=== PATIENT | female | born 1970 | race Caucasian/White ===

== ENCOUNTER → 2023-02-02 | Outpatient (CLI) | payer OTHER ==
[2023-02-02 15:43] LABS: Basophils # (A) 0.05 X 10*3/uL (0.00-0.10); Basophils % (A) 0.7 %; Eosinophils # (A) 0.28 X 10*3/uL (0.04-0.35); HCT 43.5 % (37.2-46.3); HGB 14.1 g/dL (12.0-15.0); Immature Grans, Automated 0.3 %; Lymphocytes # (A) 2.71 X 10*3/uL (0.90-5.00); Lymphocytes % (A) 38.7 %; MCH 30.7 pg (27.0-32.0); MCHC 32.4 g/dL (32.0-37.0); MCV 94.8 fL (80.0-97.0); Monocytes # (A) 0.69 X 10*3/uL (0.20-1.00); Monocytes % (A) 9.8 %; NRBC Per 100 WBC 0 /100 WBCS (0.0-0.0); Neutrophils # (A) 3.26 X 10*3/uL (1.80-7.70); Neutrophils % (A) 46.5 %; Platelet Count 324 X 10*3/uL (140-440); RBC 4.59 X 10*6/uL (4.10-5.20); RDW 12.7 % (11.5-14.5); WBC 7.01 X 10*3/uL (4.50-10.00)
[2023-02-02 16:03] LABS: ALT 18 U/L (8-44); AST 11 U/L (13-35); African American GFR (CKD) 117.2 (60.0-200.0); Albumin 4.4 g/dL (3.8-4.9); Albumin/Globulin Ratio 1.81 (1.60-3.17); Alkaline Phosphatase 88 U/L (41-126); BUN/Creat Ratio 19.08 Ratio (12.00-20.00); Blood Urea Nitrogen 12.5 mg/dL (9.0-27.0); Calcium 9.2 mg/dL (8.7-10.3); Carbon Dioxide 24.9 mmol/L (20.0-27.5); Chloride 108 mmol/L (96-109); Chol/HDL Ratio 4.44 Ratio; Globulin 2.4 g/dL (1.6-3.3); Glucose 106 mg/dL (70-110); LDL Cholesterol,Calculated 123.1 mg/dL (0.0-131.0); Non-African American GFR(CKD) 101.1 (60.0-200.0); Potassium 4.2 mmol/L (3.5-5.5); Sodium 143 mmol/L (135-145); Total Protein 6.8 g/dL (6.2-8.2)
== END | disposition home or self-care (01) ==
LOC: LABWHC1 08:31
PROVIDERS: ATTEND Internal Medicine
DX: Z00.00 Encounter for general adult medical examination without abnormal findings (principal)
CPT/HCPCS: 36415; 80053; 80061; 84443; 85025

== ENCOUNTER 2023-04-24 06:30 | Emergency (ER) | payer OTHER ==
[2023-04-24 06:39] VITALS: RESP 18; TEMP 97.6
[2023-04-24] MEDS ORDERED: KETOROLAC 15 MG/ML 1 ML VIAL IM STA (06:47)
[2023-04-24] MEDS ORDERED: HYDROcodone/APAP 5-325MG 1 EACH TAB PO STA (06:47)
--- NOTE | 2023-04-24 06:51 | ED ---
Lower Extremity Injury HPI - General Chief Complaint: Extremity Injury, Lower Stated Complaint: Left Leg Injury Time Seen by Provider: 04/24/23 06:39 Source: patient, RN notes reviewed Mode of arrival: wheelchair Limitations: no limitations - History of Present Illness Initial Comments: This is a 52-year-old female who presents to the emergency department for left leg pain. Patient states yesterday, her leg got twisted in a tractor, and she's had pain ever since. The majority of the pain is on the left side of the knee, however she does have pain going both up and down the leg. She is having difficulty walking and fully straightening the leg due to pain. She has not yet taken anything to treat her symptoms. Denies sustaining any other injuries. Denies any fevers, chills, sore throat, cough, dyspnea, chest pain, palpitations, abdominal pain, nausea, vomiting, diarrhea, back pain, or headaches. MD Complaint: knee injury, leg injury Onset/Timin -: days(s) Injury: Leg: Left, Knee: Left - Related Data Home Medications Medication Instructions Recorded Confirmed No Known Home Medications 05/06/16 05/06/16 Allergies Allergy/AdvReac Type Severity Reaction Status Date / Time No Known Allergies Allergy Verified 05/06/16 19:49 Review of Systems ROS Statement: Those systems with pertinent positive or pertinent negative responses have been documented in the HPI. ROS Other: All systems not noted in ROS Statement are negative. Past Medical History Past Medical History: No Reported History History of Any Multi-Drug Resistant Organisms: None Reported Past Surgical History: No Surgical Hx Reported Past Psychological History: No Psychological Hx Reported Past Alcohol Use History: None Reported Past Drug Use History: Marijuana General Exam Limitations: no limitations General appearance: alert, in distress Head exam: Present: atraumatic, normocephalic, normal inspection Respiratory exam: Present: normal lung sounds bilaterally. Absent: respiratory distress, wheezes, rales, rhonchi, stridor Cardiovascular Exam: Present: regular rate, normal rhythm, normal heart sounds. Absent: systolic murmur, diastolic murmur, rubs, gallop, clicks Extremities exam: Present: other (Tenderness to palpation over the lateral aspect of the left patella with mild overlying swelling. Paula's and range of motion in general induces pain. 2+ DP and PT pulses. Capillary refill less than 1 second.) Neurological exam: Present: alert, oriented X3, CN II-XII intact Psychiatric exam: Present: normal affect, normal mood Skin exam: Present: warm, dry, intact, normal color. Absent: rash Course Vital Signs 04/24/23 04/24/23 06:36 07:38 Temperature 97.6 F Pulse Rate 56 L 86 Respiratory 18 18 Rate Blood Pressure 170/103 143/92 O2 Sat by Pulse 98 96 Oximetry Medical Decision Making - Medical Decision Making This is a 52-year-old female who presents to the emergency department for left leg pain. Was pt. sent in by a medical professional or institution? @ -No Did you speak to anyone other than the patient for history? @ -No Did you review nursing and triage notes? @ -Yes, and I agree, it is accurate with regards to the patient's symptoms. Were old charts reviewed? @ -No Differential Diagnosis? @ -Differential Leg Pain: Leg fracture, leg sprain, DVT, PVD, arterial insufficiency, iliac artery aneurysm, cellulitis, compartment syndrome, tendinopathy, nerve entrapment, piriformis syndrome, osteoarthritis, rhabdomyolysis, myositis, cramping from an electrolyte imbalance, this is not meant to be an all inclusive list. EKG interpreted by me (3pts min.)? @ -Not obtained X-rays interpreted by me (1pt min.)? @ -XR of the left hip, knee, and tib/fib obtained. My interpretation identifies no acute fractures or dislocations. CT interpreted by me (1pt min.)? @ -Not obtained U/S interpreted by me (1pt. min.)? @ -Not obtained What testing was considered but not performed? (CT, X-rays, U/S, labs)? Why? @ -None What meds were considered but not given? Why? @ -None Did you discuss the management of the patient with other professionals? @ -No Did you reconcile home meds? @ -No Was smoking cessation discussed for >3mins.? @ -No Was critical care preformed (if so, how long)? @ -No Were there social determinants of health that impacted care today? How? (Homelessness, low income, unemployed, alcoholism, drug addiction, transportation, low edu. Level, literacy, decrease access to med. care, nursing home, rehab)? @ -No Was there de-escalation of care discussed even if they declined? (Discuss DNR or withdrawal of care, Hospice)? @ -No What co-morbidities impacted this encounter? (DM, HTN, Smoking, COPD, CAD, Cancer, CVA, Hep., AIDS, mental health diagnosis, sleep apnea, morbid obesity)? @ -None Was patient admitted / discharged? @ -Discharged. Patient given IM toradol and Ralph for pain control, which was beneficial. XR of the left hip, knee, and tib/fib obtained revealing no acute process. Discussed with the patient that this does not rule out an injury to her meniscus or ligaments, which we cannot adequately identify on x-rays. Information for orthopedic follow-up provided, she is instructed to contact them for a follow-up appointment. Patient is also instructed to alternate with ibuprofen and tylenol for pain relief and to apply ice to the areas of pain for 15-20 minutes every 2-3 hours for the first 2-3 days followed by heat there afterwards. Undiagnosed new problem with uncertain prognosis? @ -None Drug Therapy requiring intensive monitoring for toxicity (Heparin, Nitro, Insulin, Cardizem)? @ -None Were any procedures done? @ -None Diagnosis/symptom? @ -Left leg pain Acute, or Chronic, or Acute on Chronic? @ -Acute Uncomplicated (without systemic symptoms) or Complicated (systemic symptoms)? @ -Uncomplicated Side effects of treatment? @ -None Exacerbation, Progression, or Severe Exacerbation] @ -Not applicable Poses a threat to life or bodily function? @ -No Return precautions reviewed in depth, the patient is instructed to return to the emergency department with any new, worsening, or concerning symptoms. Patient verbalized understanding. This case was discussed in detail with the attending ED physician, Dr. Potts. Presentation, findings, and treatment plan discussed in detail as well. - Radiology Data Radiology results: report reviewed, image reviewed Disposition Clinical Impression: Left leg injury Disposition: HOME SELF-CARE Instructions (If sedation given, give patient instructions): Knee Sprain (ED) Additional Instructions: Return to the emergency department with any new, worsening, or concerning symptoms. Alternate with ibuprofen and Tylenol as needed for pain relief. Apply ice to the affected areas for 15-20 minutes every 2-3 hours. Contact orthopedics as listed below for a follow-up appointment. Follow up with your primary care provider in 1-2 days. Is patient prescribed a controlled substance at d/c from ED?: No Referrals: Liam Main DO [Primary Care Provider] - 1-2 days Jf Galindo MD [STAFF PHYSICIAN] - 1-2 days
--- NOTE | 2023-04-24 07:31 | XR ---
EXAMINATION TYPE: XR Hip Complete 2 views LT, XR tibia fibula 2 views LT, XR knee complete 3 views LT DATE OF EXAM: 04/24/2023 COMPARISON: NONE HISTORY: 52-year-old female pain after injury FINDINGS: Left hip: There is mild degenerative spurring and subchondral cystic change at the left hip. No acute fracture, subluxation, dislocation is seen. Left knee: There is tricompartmental degenerative spurring. There is a small knee joint effusion. Extensor mecha nism appears intact. No acute fracture, subluxation, or dislocation is seen. Left tibia/fibula: There is a 6 mm corticated bone fragment below the distal fibula suggesting sequela of remote injury. No acute fracture, subluxation, or dislocation is seen. Ankle joint appears grossly intact. IMPRESSION: 1. Left hip: Mild left hip joint. No acute osseous abnormality seen. 2. Left knee: At least mild tricompartmental osteoarthrosis. There is a small knee joint effusion pre sent which is nonspecific. No acute osseous abnormality seen. If concern for internal derangement, MR I can be performed. 3. Left tibia/fibula: Sequela of old injury below the lateral malleolus. No acute osseous abnormality seen.
[2023-04-24 07:42] VITALS: BP 143/92; PULSE 86
[2023-04-24] MEDS ORDERED: ACET/COD 300 MG/30 MG STARTER PACK 6 TAB BTL PO STA (07:59)
[2023-04-24] MEDS ORDERED: IBUPROFEN 600 MG STARTER PACK 4 TAB BTL PO STA (07:59)
== END 2023-04-24 08:22 | disposition home or self-care (01) ==
LOC: EC 06:30
DX: S89.92XA Unspecified injury of left lower leg, initial encounter (principal); F12.90 Cannabis use, unspecified, uncomplicated; X50.0XXA Overexertion from strenuous movement or load, initial encounter
CPT/HCPCS: 73502; 73590; 73562; 99283; 96372; J1885